=== PATIENT | female | born 1965 | race Caucasian/White ===

== ENCOUNTER 2016-07-22 12:01 | Emergency (ER) | payer SELFPAY ==
[~2016-07-22] VITALS: Ht 172.7 cm; Wt 72.6 kg
[~2016-07-22 12:01] MED LIST: KEPPRA PO
[2016-07-22 12:08] VITALS: BP 126/81
[2016-07-22] MEDS ORDERED: LEVETIRACETAM (250 MG) 250 MG TABLET PO ONE ×2 (12:21→12:30)
== END 2016-07-22 12:33 | disposition home or self-care (01) ==
LOC: ER 12:03
DX: R44.3 Hallucinations, unspecified (principal); F20.9 Schizophrenia, unspecified; G40.909 Epilepsy, unspecified, not intractable, without status epilepticus; I10 Essential (primary) hypertension; I50.9 Heart failure, unspecified; F32.9 Major depressive disorder, single episode, unspecified; F10.20 Alcohol dependence, uncomplicated; F17.200 Nicotine dependence, unspecified, uncomplicated; Z59.0 Homelessness
CPT/HCPCS: 99282; A4606; Z7610

== ENCOUNTER 2016-07-26 20:07 | Emergency (ER) | payer OTHER ==
[~2016-07-26] VITALS: Ht 165.1 cm; Wt 65.8 kg
[~2016-07-26 20:07] MED LIST changes: +[UNRECOGNIZED DRUG - REMARK]
[2016-07-26 20:48] LABS: CALCIUM, SERUM 8.3 mg/dL (8.5-10.1); CREATININE 0.6 mg/dL (0.6-1.3); POTASSIUM 3.5 mmol/L (3.5-5.1)
[2016-07-26 20:54] LABS: ALBUMIN 3.4 g/dL (3.4-5.0); BILIRUBIN,DIRECT 0.1 mg/dL (0.0-0.2); BILIRUBIN,TOTAL 0.2 mg/dL (0.2-1.0); INDIRECT BILIRUBIN 0.1 mg/dL (0.0-1.1); TOTAL PROTEIN, SERUM 7.1 g/dL (6.4-8.2)
[2016-07-26 20:55] LABS: SALICYLATE 1.7 mg/dL (2.8-20.0)
[2016-07-26 21:22] LABS: BASOPHILS # (AUTO) 0.1 /CMM (0.0-0.2); HEMOGLOBIN 7.1 g/dL (11.5-14.8); MONOCYTES # (AUTO) 0.6 /CMM (0.1-1.30); WHITE BLOOD COUNT (AUTO) 5.7 K/uL (4.3-11.0)
[2016-07-26 21:39] LABS: BASOPHILS % (AUTO) 0.9 % (0.0-2.0); DIFF TOTAL % 100 %; EOSINOPHILS # (AUTO) 0.2 /CMM (0.0-0.7); EOSINOPHILS % (AUTO) 3.1 % (0.0-6.0); HEMATOCRIT 24 % (33-45); LYMPHOCYTES # (AUTO) 2.3 /CMM (0.8-4.8); LYMPHOCYTES % (AUTO) 40.2 % (20.0-44.0); MEAN CORPUSCULAR HEMOGLOBIN 19 PG (26.0-33.0); MEAN CORPUSCULAR HGB CONC 30 g/dl (31.0-36.0); MEAN CORPUSCULAR VOLUME 63 fL (82-100); MONOCYTES % (AUTO) 10.2 % (2.0-12.0); NEUTROPHILS # (AUTO) 2.6 /CMM (1.8-8.9); NEUTROPHILS % (AUTO) 45.6 % (43.0-81.0); PLATELET COUNT (AUTO) 215 /CMM (150-450); RED BLOOD CELL COUNT(AUTO) 3.77 MIL/uL (4.0-5.2)
[2016-07-26 22:02] LABS: EOSINOPHILS % (MANUAL) 3 % (0-4); LYMPHOCYTES % (MANUAL) 31 % (16-48)
[2016-07-26 22:03] LABS: ANISOCYTOSIS 2+; HYPOCHROMASIA 2+; MICROCYTOSIS 2+; PLATELET ESTIMATE ADEQUATE
[2016-07-26 23:51] LABS: ADD UA MICROSCOPIC NO; KETONES,URINE NEGATIVE (NEGATIVE); LEUKOCYTE ESTERASE ,URINE NEGATIVE (NEGATIVE); PH,URINE 5.5 (5.0-8.0)
[2016-07-26 23:57] LABS: CANNABINOID, URINE NEGATIVE (NEGATIVE); PHENCYCLIDINE SCREEN,URINE NEGATIVE (NEGATIVE)
[2016-07-27] MEDS ORDERED: OLANZAPINE 5 MG TABLET ONE ×2 (01:20→10:50)
[2016-07-27] MEDS ORDERED: OLANZAPINE 10 MG VIAL IM ONE (01:30)
[2016-07-27] MEDS ORDERED: LEVETIRACETAM (250 MG) 250 MG TABLET PO ONE ×2 (10:50→11:00)
[2016-07-27] MEDS ORDERED: OLANZAPINE 5 MG TABLET PO ONE (11:00)
[2016-07-27 12:10] VITALS: BP 115/75
== END 2016-07-27 12:11 | disposition home or self-care (01) ==
LOC: EDBD → ER 20:22 → MERGE 20:22 → ER 07-27 12:11
DX: F23 Brief psychotic disorder (principal)
CPT/HCPCS: 36415; 80048-TC; 80076-TC; 80305; 81000-TC; 84703-TC; 85025-TC; A4606; G6038-TC; G6039-TC; G6040-TC; Z7610

== ENCOUNTER 2016-07-31 16:28 | Emergency (ER) | payer OTHER ==
[~2016-07-31] VITALS: Ht 167.6 cm; Wt 70.8 kg
[2016-07-31] MEDS ORDERED: OLANZAPINE 10 MG VIAL IM ONE ×2 (16:46→17:00)
[2016-07-31] MEDS ORDERED: LORAZEPAM INJ 2 MG/ML VIAL ONE (16:47)
[2016-07-31] MEDS ORDERED: LORAZEPAM INJ 2 MG/ML VIAL IM ONE (17:00)
[2016-07-31 17:09] LABS: ANION GAP 11 (5-14); CALCIUM, SERUM 8.8 mg/dL (8.5-10.1); CARBON DIOXIDE 29 mmol/L (21-32); CHLORIDE 104 mmol/L (98-107); CREATININE 0.6 mg/dL (0.6-1.3); GFR 105 mL/min (>60); GLUCOSE 107 mg/dL (74-106); POTASSIUM 3.8 mmol/L (3.5-5.1); SODIUM SERUM 140 mmol/L (136-145); UREA NITROGEN, BLOOD 21 mg/dL (7-18)
[2016-07-31 17:24] LABS: HEMATOCRIT 26 % (33-45); HEMOGLOBIN 7.9 g/dL (11.5-14.8); MEAN CORPUSCULAR HEMOGLOBIN 19 PG (26.0-33.0); MEAN CORPUSCULAR HGB CONC 30 g/dl (31.0-36.0); MEAN CORPUSCULAR VOLUME 64 fL (82-100); PLATELET COUNT (AUTO) 298 /CMM (150-450); RED BLOOD CELL COUNT(AUTO) 4.12 MIL/uL (4.0-5.2)
[2016-07-31 18:10] LABS: CANNABINOID, URINE NEGATIVE (NEGATIVE); PHENCYCLIDINE SCREEN,URINE NEGATIVE (NEGATIVE)
[2016-07-31 19:03] LABS: HYPOCHROMASIA 1+; LYMPHOCYTES % (MANUAL) 32 % (16-48); PLATELET ESTIMATE ADEQUATE
[2016-08-01 10:40] VITALS: BP 136/73
== END 2016-08-01 15:18 ==
LOC: ER 16:30
DX: F23 Brief psychotic disorder (principal); R40.4 Transient alteration of awareness; Z88.8 Allergy status to other drugs, medicaments and biological substances; F10.10 Alcohol abuse, uncomplicated; F17.200 Nicotine dependence, unspecified, uncomplicated; Z59.0 Homelessness
CPT/HCPCS: 36415; 70450; 80048; 80305; 85025; 96372 ×2; 99285; A4606; G0481; J2060; J3490; Z7610; G6040-TC

== ENCOUNTER 2016-12-06 15:27 | Emergency (ER) | payer OTHER ==
[~2016-12-06] VITALS: Ht 167.6 cm; Wt 65.8 kg
--- NOTE | 2016-12-06 15:34 | NUR ---
pt [place]mer [place] the streets to er bed 14. possibele etoh. per report, etoh breath. exhibiting bizzare behavior. hyperverbal and not making sense. head bump noted. placed on monitor. stable vitals. awaiting md barreto.
--- NOTE | 2016-12-06 15:36 | NUR ---
dr weiner at bedside for eval.
--- NOTE | 2016-12-06 15:43 | NUR ---
labor delivery specialist at bedside for blood draw.
[2016-12-06 15:46] LABS: BASOPHILS % (AUTO) 0.3 % (0.0-2.0); EOSINOPHILS # (AUTO) 0.1 /CMM (0.0-0.7); EOSINOPHILS % (AUTO) 1.8 % (0.0-6.0); HEMATOCRIT 34 % (33-45); HEMOGLOBIN 11.1 g/dL (11.5-14.8); LYMPHOCYTES # (AUTO) 1.6 /CMM (0.8-4.8); LYMPHOCYTES % (AUTO) 30.7 % (20.0-44.0); MEAN CORPUSCULAR HEMOGLOBIN 26 PG (26.0-33.0); MEAN CORPUSCULAR HGB CONC 33 g/dl (31.0-36.0); MEAN CORPUSCULAR VOLUME 78 fL (82-100); MONOCYTES # (AUTO) 0.6 /CMM (0.1-1.30); MONOCYTES % (AUTO) 11.6 % (2.0-12.0); NEUTROPHILS # (AUTO) 3.1 /CMM (1.8-8.9); NEUTROPHILS % (AUTO) 55.6 % (43.0-81.0); PLATELET COUNT (AUTO) 200 /CMM (150-450); RDW COEFFICIENT OF VARIATION 26.5 (11.5-15.0); RED BLOOD CELL COUNT(AUTO) 4.35 MIL/uL (4.0-5.2); WHITE BLOOD COUNT (AUTO) 5.4 K/uL (4.3-11.0)
[2016-12-06 15:57] LABS: CALCIUM, SERUM 8.8 mg/dL (8.5-10.1); CREATININE 0.6 mg/dL (0.6-1.3); POTASSIUM 3.4 mmol/L (3.5-5.1)
[2016-12-06] MEDS ORDERED: OLANZAPINE 10 MG VIAL IM ONE (16:00)
[2016-12-06 16:01] LABS: ALBUMIN 3.4 g/dL (3.4-5.0); BILIRUBIN,DIRECT 0.1 mg/dL (0.0-0.2); BILIRUBIN,TOTAL 0.5 mg/dL (0.2-1.0); TOTAL PROTEIN, SERUM 7.4 g/dL (6.4-8.2)
[2016-12-06 16:02] LABS: SALICYLATE 0.9 mg/dL (2.8-20.0)
[2016-12-06 16:10] LABS: APPEARANCE,URINE Clear (CLEAR); BLOOD, URINE Negative Ery/uL (NEGATIVE); COLOR,URINE Yellow (YELLOW); KETONES,URINE Negative (NEGATIVE); LEUKOCYTE ESTERASE ,URINE Negative (NEGATIVE); NITRITE, URINE Negative (NEGATIVE); PROTEIN,URINE 30 mg/dl (NEGATIVE); UGLUCOSE Negative (NEGATIVE)
--- NOTE | 2016-12-06 16:15 | NUR ---
pt to radiology for head ct scan via [facility].
[2016-12-06 17:01] LABS: BILIRUBIN,URINE SMALL (NEGATIVE)
[2016-12-06 17:15] LABS: BACTERIA,URINE None seen /HPF (None Seen); RBC,URINE 0-2 /HPF (0-2); SQUAMOUS EPITHELIAL CELL,UR Few /HPF (None Seen); WBC,URINE 0-2 /HPF (0-3)
--- NOTE | 2016-12-06 17:39 | NUR ---
pt is sleeping. on monitor w/ stable vitals noted. will continue to monitor.
--- NOTE | 2016-12-06 19:20 | NUR ---
pt sleeping in bed. on monitor w/ stable vitals.
--- NOTE | 2016-12-06 21:53 | NUR ---
pt is sleeping. arousable. denies pain. on monitor w/ stable vitals. will continue to monitor.
--- NOTE | 2016-12-06 23:23 | NUR ---
report to charge nurse vishal for shila.
--- NOTE | 2016-12-07 01:00 | NUR ---
PT SLEEPING COMFORTABLY ON BED. AWAKENS TO NAME. DENIES COMPLAINT; RETURNS TO SLEEP. VSS, NAD NOTED. WILL CONT TO MONITOR.
--- NOTE | 2016-12-07 02:30 | NUR ---
PT SLEEPING COMFORTABLY LEFT LATERAL ON BED. AWAKENS TO NAME. DENIES COMPLAINT. GIVEN WARM BLANKET; RETURNS TO SLEEP. VSS, NAD NOTED. WILL CONT TO MONITOR.
--- NOTE | 2016-12-07 04:20 | NUR ---
PT SLEEPING COMFORTABLY SEMIFOWLERS ON BED. AWAKENS TO NAME. DENIES COMPLAINT. [id number]+[id number]. VSS, NAD NOTED. WILL CONT TO MONITOR.
--- NOTE | 2016-12-07 05:43 | NUR ---
Patient discharged to home in stable condition. Written and verbal after care instructions given. Patient verbalizes understanding of instruction. Pt ambulatory with a steady gait. VSS, NAD noted on DC. Denies complaint on DC. Pt offered assistance from social group worker; pt declined and stated she will return to the street.
[2016-12-07 05:45] VITALS: BP 141/81
== END 2016-12-07 05:46 | disposition home or self-care (01) ==
LOC: ER 15:28
DX: F29 Unspecified psychosis not due to a substance or known physiological condition (principal); F22 Delusional disorders; F17.200 Nicotine dependence, unspecified, uncomplicated; Z88.8 Allergy status to other drugs, medicaments and biological substances; W22.8XXA Striking against or struck by other objects, initial encounter; Y93.89 Activity, other specified; Y92.89 Other specified places as the place of occurrence of the external cause; Y99.9 Unspecified external cause status
CPT/HCPCS: 36415; 70450-TC; 80048-TC; 80076-TC; 80305; 81000-TC; 85025-TC; A4606; G0480; G6039-TC; J3490; Z7610